=== PATIENT | female | born 1980 | race American Indian/Alaskan Native ===

== ENCOUNTER 2017-07-05 12:29 | Emergency (ER) | payer SELFPAY ==
[2017-07-05] MEDS ORDERED: TYLENOL ONE (12:46)
[2017-07-05] MEDS ORDERED: TYLENOL PO ONE (12:48)
[2017-07-05] MEDS ORDERED: MOTRIN PO ONE (13:32)
[2017-07-05] MEDS ORDERED: DUONEB *Not for PRN Use IH ONE (13:34)
[2017-07-05] MEDS ORDERED: ZOFRAN ODT PO ONE (13:35)
--- NOTE | 2017-07-05 14:05 | Emergency Department Report ---
- General Chief Complaint: Fever Stated Complaint: FLU SYMPTOMS Time Seen by Provider: 07/05/17 13:16 Source: patient Mode of arrival: Ambulatory Limitations: No Limitations - History of Present Illness Initial Comments: 37-year-old female past medical history none presents with complaint of 3-4 days of bodyaches fevers chills dry cough nausea vomiting and diarrhea. Patient came today because she was taking [id number] medicines with minimal relief of her symptoms and fever. Patient awake alert and oriented 3 and states that cough and sore throat or bothering her. 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 MD Complaint: fever, cough, sore throat, rhinorrhea, nasal congestion Onset/Timin -: days(s) Severity: mild Context: sick contacts Associated Symptoms: fever, chills, myalgias, cough Treatments Prior to Arrival: none - Related Data Previous Rx's Medication Instructions Recorded Last Taken Type Clindamycin HCl [Clindamycin Oral] 300 mg PO Q6H #80 capsule 11/02/13 Unknown Rx HYDROcodone/APAP 7.5-325 [[place] 1 each PO Q6HR PRN #20 tablet 11/02/13 Unknown Rx 7.5/325 mg] Ibuprofen [Motrin] 600 mg PO Q8H PRN #60 tablet 11/02/13 Unknown Rx Clindamycin [Cleocin] 300 mg PO Q8H #30 cap 10/17/14 Unknown Rx Fluconazole [Diflucan] 150 mg PO ONCE #1 tablet 10/17/14 Unknown Rx Ibuprofen [Motrin] 800 mg PO Q8H PRN #30 tablet 10/17/14 Unknown Rx Sulfamethoxazole/Trimethoprim 1 each PO BID #14 tablet 10/17/14 Unknown Rx [Bactrim Ds] traMADol [Ultram] 50 mg PO Q6HR PRN #14 tablet 10/17/14 Unknown Rx HYDROcodone/APAP 7.5-325 [[place] 1 each PO Q6HR PRN #16 tablet 01/04/15 Unknown Rx 7.5/325] Sulfamethoxazole/Trimethoprim 1 each PO Q12H #14 tablet 01/04/15 Unknown Rx [Bactrim DS TAB] Acetaminophen/Codeine [Tylenol 1 tab PO Q6H PRN #8 tab 07/05/17 Unknown Rx /Codeine # 3 tab] Benzonatate [Tessalon Perles] 100 mg PO Q8HR PRN #30 capsule 07/05/17 Unknown Rx Ibuprofen [Motrin] 800 mg PO Q8HR PRN #30 tablet 07/05/17 Unknown Rx Ondansetron [Zofran Odt] 4 mg PO Q8HR PRN #12 tab.rapdis 07/05/17 Unknown Rx Oseltamivir [Tamiflu] 75 mg PO BID #10 cap 07/05/17 Unknown Rx Phenylephrine/Dm/Acetaminop/GG 10 ml PO Q6H PRN #1 liquid 07/05/17 Unknown Rx [Mucinex Kcwd-Feo-Cicarjjxqj Lq] Allergies Allergy/AdvReac Type Severity Reaction Status Date / Time metronidazole [From Flagyl] Allergy Swelling Verified 07/05/17 12:47 coconut Allergy Swelling Uncoded 01/04/15 13:10 pork Allergy Swelling Uncoded 01/04/15 13:10 ED Review of Systems ROS: Stated complaint: FLU SYMPTOMS Other details as noted in HPI Constitutional: chills, fever, malaise Eyes: denies: eye pain, eye discharge, vision change ENT: denies: ear pain, throat pain Respiratory: denies: cough, shortness of breath, wheezing Cardiovascular: denies: chest pain, palpitations Endocrine: no symptoms reported Gastrointestinal: denies: abdominal pain, nausea, diarrhea Genitourinary: denies: urgency, dysuria, discharge Musculoskeletal: denies: back pain, joint swelling, arthralgia Skin: denies: rash, lesions Neurological: denies: headache, weakness, paresthesias Psychiatric: denies: anxiety, depression Hematological/Lymphatic: denies: easy bleeding, easy bruising ED Past Medical Hx - Past Medical History Hx Hypertension: Yes (PIH) Hx Diabetes: Yes (GESTATIONAL) Additional medical history: ovarian cyst. SEBACEOUS CYST - Surgical History Additional Surgical History: oral surgeries, tubal ligation, hernia - Social History Smoking Status: Never Smoker Substance Use Type: None - Medications Home Medications: Home Medications Medication Instructions Recorded Confirmed Last Taken Type Clindamycin HCl [Clindamycin Oral] 300 mg PO Q6H #80 capsule 11/02/13 Unknown Rx HYDROcodone/APAP 7.5-325 [[place] 1 each PO Q6HR PRN #20 tablet 11/02/13 Unknown Rx 7.5/325 mg] Ibuprofen [Motrin] 600 mg PO Q8H PRN #60 tablet 11/02/13 Unknown Rx Clindamycin [Cleocin] 300 mg PO Q8H #30 cap 10/17/14 Unknown Rx Fluconazole [Diflucan] 150 mg PO ONCE #1 tablet 10/17/14 Unknown Rx Ibuprofen [Motrin] 800 mg PO Q8H PRN #30 tablet 10/17/14 Unknown Rx Sulfamethoxazole/Trimethoprim 1 each PO BID #14 tablet 10/17/14 Unknown Rx [Bactrim Ds] traMADol [Ultram] 50 mg PO Q6HR PRN #14 tablet 10/17/14 Unknown Rx HYDROcodone/APAP 7.5-325 [[place] 1 each PO Q6HR PRN #16 tablet 01/04/15 Unknown Rx 7.5/325] Sulfamethoxazole/Trimethoprim 1 each PO Q12H #14 tablet 01/04/15 Unknown Rx [Bactrim DS TAB] Acetaminophen/Codeine [Tylenol 1 tab PO Q6H PRN #8 tab 07/05/17 Unknown Rx /Codeine # 3 tab] Benzonatate [Tessalon Perles] 100 mg PO Q8HR PRN #30 capsule 07/05/17 Unknown Rx Ibuprofen [Motrin] 800 mg PO Q8HR PRN #30 tablet 07/05/17 Unknown Rx Ondansetron [Zofran Odt] 4 mg PO Q8HR PRN #12 tab.rapdis 07/05/17 Unknown Rx Oseltamivir [Tamiflu] 75 mg PO BID #10 cap 07/05/17 Unknown Rx Phenylephrine/Dm/Acetaminop/GG 10 ml PO Q6H PRN #1 liquid 07/05/17 Unknown Rx [Mucinex Evpb-Onj-Jxopvljesc Lq] ED Physical Exam - General Limitations: No Limitations General appearance: alert, in no apparent distress - Head Head exam: Present: atraumatic, normocephalic - Eye Eye exam: Present: normal appearance, PERRL, EOMI - ENT ENT exam: Present: mucous membranes moist - Neck Neck exam: Present: normal inspection - Respiratory Respiratory exam: Present: normal lung sounds bilaterally. Absent: respiratory distress - Cardiovascular Cardiovascular Exam: Present: regular rate, normal rhythm. Absent: systolic murmur, diastolic murmur, rubs, gallop - GI/Abdominal GI/Abdominal exam: Present: soft, normal bowel sounds - Extremities Exam Extremities exam: Present: normal inspection - Back Exam Back exam: Present: normal inspection - Neurological Exam Neurological exam: Present: alert, oriented X3 - Psychiatric Psychiatric exam: Present: normal affect, normal mood - Skin Skin exam: Present: warm, dry, intact, normal color. Absent: rash ED Course Vital Signs 07/05/17 07/05/17 07/05/17 12:46 13:21 13:48 Temperature 101.5 F H 100.1 F H Pulse Rate 66 Pulse Rate [ 107 H Anterior Bilateral Throughout] Respiratory 18 Rate Respiratory 20 Rate [Anterior Bilateral Throughout] Blood Pressure 133/82 O2 Sat by Pulse 98 Oximetry 07/05/17 13:57 Temperature Pulse Rate Pulse Rate [ 98 H Anterior Bilateral Throughout] Respiratory Rate Respiratory 20 Rate [Anterior Bilateral Throughout] Blood Pressure O2 Sat by Pulse Oximetry ED Medical Decision Making - Medical Decision Making A/P: Influenza B, viral syndrome 1-chest x-ray unremarkable, patient tolerating by mouth fluid and food without difficulty, vital signs stable for discharge 2-symptomatic treatment with antitussives throat lozenges and antipyretics 3-advised patient to return to the ED for any inability to tolerate by mouth fluids or food persistent nausea and vomiting chest pain or shortness of breath or persistent fevers above 100.4F despite Tylenol or Motrin use 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 I discussed the benefits risks and side effects of Tamiflu with the patient at this time patient elects to take Tamiflu. I educated her on treatment and management of influenza. Critical care attestation.: If time is entered above; I have spent that time in minutes in the direct care of this critically ill patient, excluding procedure time. ED Disposition Clinical Impression: Influenza B Disposition: DC-01 TO HOME OR SELFCARE Is pt being admited?: No Does the pt Need Aspirin: No Condition: Stable Instructions: Influenza (ED), Viral Syndrome (ED) Prescriptions: Acetaminophen/Codeine [Tylenol /Codeine # 3 tab] 1 tab PO Q6H PRN #8 tab PRN Reason: Cough Benzonatate [Tessalon Perles] 100 mg PO Q8HR PRN #30 capsule PRN Reason: Cough Ibuprofen [Motrin] 800 mg PO Q8HR PRN #30 tablet PRN Reason: Fever Ondansetron [Zofran Odt] 4 mg PO Q8HR PRN #12 tab.rapdis PRN Reason: Nausea Oseltamivir [Tamiflu] 75 mg PO BID #10 cap Phenylephrine/Dm/Acetaminop/GG [Mucinex Jsex-Ovk-Laqdqaqbek Lq] 10 ml PO Q6H PRN #1 liquid PRN Reason: Fever Referrals: PRIMARY CARE, [Primary Care Provider] - 3-5 Days [facility] [Provider Group] - 3-5 Days [facility] [Outside] - 3-5 Days Forms: Work/School Release Form(ED) Time of Disposition: 15:28
--- NOTE | 2017-07-05 15:25 | XRay Report ---
FINAL REPORT EXAM: XR CHEST ROUTINE 2V HISTORY: worsening cough, pt has ligation not preg TECHNIQUE: Chest, PA and lateral PRIORS: None. FINDINGS: The heart size is normal. Mediastinal contours are normal. Pulmonary vasculature is not congested. The lungs are clear. There are no pleural effusion seen. There is no evidence of pneumothorax. IMPRESSION: There is no acute abnormality identified.
[2017-07-05 15:36] VITALS: BP 108/70
== END 2017-07-05 15:53 | disposition home or self-care (01) ==
LOC: ED 12:29
DX: J11.1 Influenza due to unidentified influenza virus with other respiratory manifestations (principal); Z88.8 Allergy status to other drugs, medicaments and biological substances; Z91.018 Allergy to other foods
CPT/HCPCS: 71046; 87400; 94640; 99283; Q0162